=== PATIENT | male | born 1995 | race Caucasian/White ===

== ENCOUNTER 2020-12-16 22:44 | Emergency (ER) | payer OTHER ==
[~2020-12-16] VITALS: Ht 175.3 cm; Wt 90.9 kg
[2020-12-16 22:55] VITALS: TEMP 98.4
[2020-12-16 23:33] VITALS: BP 134/85; PULSE 66
== END 2020-12-16 23:37 | disposition home or self-care (01) ==
LOC: COL.ER 22:44
DX: R60.0 Localized edema (principal)
CPT/HCPCS: J1650

== ENCOUNTER → 2021-10-31 | Outpatient (CLI) | payer OTHER | LOC: COL.RAD 10-29 08:15 | DX: M25.552 Pain in left hip (principal) | CPT/HCPCS: J3301; Q9967 ==